=== PATIENT | female | born 1950 | race Caucasian/White ===

== ENCOUNTER 2018-04-29 11:43 | Outpatient (CLI) | payer MEDICARE ==
[2018-04-29] VITALS (18 sets, daily range): BP systolic 93–121; BP diastolic 60–87
== END 2018-04-29 23:59 | disposition home or self-care (01) ==
LOC: CARD DIAG 11:43
PROVIDERS: ATTEND Internal Medicine Interventional Cardiology
DX: R42 Dizziness and giddiness (principal); R00.1 Bradycardia, unspecified
CPT/HCPCS: 93660